=== PATIENT | male | born 1960 | race Two or more races ===

== ENCOUNTER 2017-07-18 12:12 | Emergency (ER) | payer MEDICAID ==
[~2017-07-18] VITALS: Ht 190.5 cm; Wt 77.7 kg
[2017-07-18 12:14] VITALS: BP 151/90
[2017-07-18] MEDS ORDERED: HYDROcodone/APAP 5/325 TABLET ONE (12:43)
[2017-07-18] MEDS ORDERED: HYDROcodone/APAP 5/325 TABLET PO ONE (13:00)
== END 2017-07-18 13:08 | disposition home or self-care (01) ==
LOC: ED 12:52
DX: K08.89 Other specified disorders of teeth and supporting structures (principal)
CPT/HCPCS: 99283